=== PATIENT | male | born 1985 | race Caucasian/White ===

== ENCOUNTER 2019-11-16 00:51 | Emergency (ER) | payer OTHER, SELFPAY ==
--- NOTE | ~2019-11-16 | XR_ITS ---
EXAMINATION: XR chest 2V DATE: 11/16/2019 01:40 INDICATION: Right-sided chest pain TECHNIQUE: PA and lateral views of the chest were obtained. COMPARISON: Chest radiograph dated 11/13/2015 FINDINGS: The lungs remain clear with no focal airspace opacities, pulmonary edema, pleural effusion or pneumot horax. The cardiomediastinal silhouette is normal. Visualized bones and soft tissues are unremarkable . IMPRESSION: 1. Normal chest radiograph. Reviewed, dictated and finalized at location A. IMPRESSION: 1. Normal chest radiograph.
[2019-11-16 00:54] VITALS: BP 159/104; PULSE 101; RESP 18; TEMP 36.2; O2SAT 100
[2019-11-16] MEDS: KETOROLAC 30 MG/ML VIAL (*BKC) IV PUSH (01:52)
[2019-11-16 02:03] LABS: Basophils Absolute Auto 0.1 K/mm3 (0.0-0.1); Basophils Percent Auto 0.9 % (0.2-1.2); Eosinophils Absolute Auto 0.2 K/mm3 (0-0.3); Hematocrit 44.7 % (42.0-52.0); Hemoglobin 15.6 g/dL (14.0-18.0); Immature Granulocyte Absolute 0.01 K/mm3 (0.00-0.031); Immature Granulocyte Percent A 0.1 % (0-0.5); Lymphocytes Absolute Auto 2.88 K/mm3 (0.9-3.2); Lymphocytes Percent Auto 37.7 % (18.3-44.2); Mean Corpuscular HGB Conc 34.9 g/dl (32-36); Mean Corpuscular Hemoglobin 30.6 pg (26-34); Mean Corpuscular Volume 87.6 fl (80-100); Mean Platelet Volume 9.8 fl (7.4-10.4); Monocytes Absolute Auto 0.5 K/mm3 (0.1-0.6); Monocytes Percent Auto 6.8 % (2.6-8.5); Neutrophils Percent Auto 52.5 % (45.5-73.1); Platelet Count Result 207 k/mm3 (150-375); Red Cell Distribution Width 11.5 % (11.5-14.5); White Blood Count 7.6 K/mm3 (4.5-10.0)
[2019-11-16 02:15] LABS: Blood Urea Nitrogen 12 mg/dL (9-20); Calcium 9.4 mg/dL (8.4-10.2); Carbon Dioxide 22 mmol/L (22-30); Chloride 101 mmol/L (98-107); Estimated CRCL calculation 141 ml/min; Estimated Glomerular Filt Rate > 60; Glucose 125 mg/dL (75-110); Potassium 3.8 mmol/L (3.4-5.0); Sodium 136 mmol/L (137-145)
[2019-11-16 02:15] LABS: Prothrombin Time 12.4 Seconds (11.1-14.7)
[2019-11-16 02:16] LABS: Partial Thromboplastin Time 25.5 SECONDS (22.3-36.8)
[2019-11-16 02:22] LABS: D Dimer < 0.22 ug/mL (<0.48)
[2019-11-16 02:27] LABS: Troponin I < 0.012 ng/mL (0.000-0.034)
[2019-11-16 03:00] VITALS: BP 135/87; PULSE 95; O2SAT 97
--- NOTE | 2019-11-16 03:02 | PC.NURSE ---
Hand off report given to MIGUEL A Yeh.
--- NOTE | 2019-11-16 03:03 | PC.NURSE ---
Pt states his pain is now mostly on right side in his back, reports it as a stabbing pain. MD Lombardi made aware by this nurse.
--- NOTE | 2019-11-16 03:13 | ED.EXTPRO ---
HPI - Extremity Problem General Chief complaint: Extremity Problem,Nontraumatic Stated complaint: right arm/shoulder pain/chest pain Time Seen by Provider: 11/16/19 01:06 History of Present Illness HPI Narrative: Patient is a 33-year-old male who presents ER with right-sided chest and back pain. Reports pains worsening over the last week and he is not taking any pain medication for. Pain worsens with any type of movement of his arm. Occasional discomfort with deep breath. He thinks he might have a little bit of swelling his arm and has had intermittent tingling in his fingers. No known trauma. Related Data Home Medications Medication Instructions Recorded Confirmed [id number] K-lycop 1 tablet PO 11/16/19 [Men's Multivitamin] Allergies Allergy/AdvReac Type Severity Reaction Status Date / Time No Known Allergies Allergy Verified 11/16/19 01:00 Review of Systems Review of Systems: All systems reviewed & are unremarkable except as noted in HPI and below Constitutional: Constitutional: Denies chills, Denies fever(s) and Denies weakness ENT: Denies nasal congestion and Denies sore throat Cardiovascular: Cardiovascular: Reports chest pain, Denies rapid heart rate and Denies radiating jaw, neck or arm pain Respiratory: Respiratory: Denies cough and Reports dyspnea Gastrointestinal: Gastrointestinal: Denies abdominal pain, Denies nausea and Denies vomiting Musculoskeletal: Musculoskeletal: Reports back pain, Denies arthralgias, Denies joint swelling and Reports muscle cramps PMFSH Past Medical History Medical History (Updated 11/16/19 @ 03:21 by Nirav Lombardi MD) Cleft palate and cleft lip No pertinent past medical history Surgical History Surgical History (Updated 11/16/19 @ 03:19 by Nirav Lombardi MD) History of repair of congenital cleft palate Social History Social History (Updated 11/16/19 @ 03:19 by Nirav Lombardi MD) Smoking status: Never smoker Exam Narrative: Exam Narrative: GENERAL: Well-appearing, well-nourished, and in no acute distress. HEAD: Normocephalic, atraumatic. CHEST: Clear to auscultation. No respiratory distress. Tender palpation right anterior chest wall. HEART: Regular rate and rhythm. No murmur heard. Normal peripheral pulses. ABDOMEN: Soft, nontender, nondistended. Back: No midline tenderness of thoracic or lumbar spine. There is paraspinal musculature tenderness in the thoracic region on the right side that reproduces significant discomfort for the patient. EXTREMITIES: Normal range of motion. No edema. SKIN: Warm, dry, no rash. NEURO: Alert and oriented x3. Course Course Emergency Course: Unremarkable evaluation. Toradol given for pain. Patient is driving home so cannot receive anything additional for discomfort. We will give him a work note and prescribed anti-inflammatory medication and muscle relaxers for home. Vital Signs Vital signs: Vital Signs Temperature 97.1 F L 11/16/19 00:54 Pulse Rate 101 H 11/16/19 00:54 Respiratory Rate 18 11/16/19 00:54 Blood Pressure 159/104 H 11/16/19 00:54 Pulse Oximetry 100 11/16/19 00:54 Temperature 97.1 F L 11/16/19 00:54 Pulse Rate 95 11/16/19 03:00 Respiratory Rate 18 11/16/19 00:54 Blood Pressure 135/87 11/16/19 03:00 Pulse Oximetry 97 11/16/19 03:00 MDM - Extremity (Nontraumatic) Lab Data Result diagrams: 11/16/19 01:55 11/16/19 01:56 Labs: Lab Results 11/16/19 11/16/19 11/16/19 Range/Units 01:55 01:55 01:56 WBC 7.6 (4.5-10.0) K/mm3 RBC 5.10 (4.6-6.20) M/mm3 Hgb 15.6 (14.0-18.0) g/dL Hct 44.7 (42.0-52.0) % MCV 87.6 (80-100) fl MCH 30.6 (26-34) pg MCHC 34.9 (32-36) g/dl RDW 11.5 (11.5-14.5) % Plt Count 207 (150-375) k/mm3 MPV 9.8 (7.4-10.4) fl Immature Gran % (Auto) 0.1 (0-0.5) % Neut % (Auto) 52.5 (45.5-73.1) % Lymph % (Auto) 37.7 (18.3-44.2) %
[2019-11-16 03:40] VITALS: BP 143/83; PULSE 94; RESP 18; O2SAT 97
== END 2019-11-16 03:40 | disposition home or self-care (01) ==
PROVIDERS: Emergency Provider Emergency Medicine; PCP Family Medicine
DX: R07.89 Other chest pain (principal); M54.6 Pain in thoracic spine
CPT/HCPCS: 36415; 71046; 80048; 84484; 85025; 85380; 85610; 85730; 96374; 99284; J1885

== ENCOUNTER 2020-03-23 23:42 | Emergency (ER) | payer OTHER, SELFPAY ==
--- NOTE | ~2020-03-23 | XR_ITS ---
EXAMINATION: XR abdomen/kub 1V INDICATION: Lower abdominal pain TECHNIQUE: Supine views of the abdomen were obtained on 2 radiographs. COMPARISON: None FINDINGS: There are no dilated loops of bowel. An expected volume of colonic stool is present. Puncta te pelvic calcifications likely reflect phleboliths. A bone island is noted in left proximal femur. IMPRESSION: 1. No radiographic correlate for the patient's symptoms. Reviewed, dictated and finalized at location A.
[2020-03-23 23:48] VITALS: BP 167/96; PULSE 79; RESP 17; TEMP 35.7; O2SAT 100
[2020-03-24 00:14] LABS: Basophils Absolute Auto 0.1 K/mm3 (0.0-0.1); Basophils Percent Auto 0.8 % (0.2-1.2); Eosinophils Absolute Auto 0.2 K/mm3 (0-0.3); Eosinophils Percent Auto 2.5 % (0-4.4); Hemoglobin 15.4 g/dL (14.0-18.0); Immature Granulocyte Absolute 0.02 K/mm3 (0.00-0.031); Immature Granulocyte Percent A 0.2 % (0-0.5); Lymphocytes Absolute Auto 3.34 K/mm3 (0.9-3.2); Mean Corpuscular HGB Conc 34.2 g/dl (32-36); Mean Corpuscular Hemoglobin 30.7 pg (26-34); Mean Corpuscular Volume 89.8 fl (80-100); Mean Platelet Volume 9.7 fl (7.4-10.4); Monocytes Absolute Auto 0.7 K/mm3 (0.1-0.6); Monocytes Percent Auto 8.5 % (2.6-8.5); Platelet Count Result 203 k/mm3 (150-375); Red Blood Count 5.01 M/mm3 (4.6-6.20); Red Cell Distribution Width 11.9 % (11.5-14.5); White Blood Count 8.4 K/mm3 (4.5-10.0)
[2020-03-24 00:20] LABS: Alanine Aminotransferase 43 U/L (4-50); Albumin Level 4.7 g/dL (3.5-5.1); Alkaline Phosphatase 60 U/L (38-126); Anion Gap 12 mmol/L (8-16); Aspartate Amino Transferase 32 U/L (17-59); Bilirubin,Total 0.3 mg/dL (0.2-1.3); Blood Urea Nitrogen 10 mg/dL (9-20); Calcium 9.2 mg/dL (8.4-10.2); Carbon Dioxide 29 mmol/L (22-30); Chloride 101 mmol/L (98-107); Estimated CRCL calculation 111 ml/min; Estimated Glomerular Filt Rate > 60; Glucose 114 mg/dL (75-110); Lipase 95 U/L (23-300); Potassium 3.8 mmol/L (3.4-5.0); Sodium 142 mmol/L (137-145)
[2020-03-24 00:56] LABS: Add Urine Microscopic? NO; Appearance Urine Clear (Clear); Bilirubin Urine Negative (Negative); Blood Urine Negative (Negative); Color Urine Colorless (Yellow); Glucose Urine UA Negative (Negative); Ketones Urine Negative (Negative); Leukocyte Esterase Ur Negative LEU/UL (Negative); Nitrate Urine Negative (Negative); Protein Urine Negative (Negative); Urobilinogen Urine Negative mg/dL (<2.0)
[2020-03-24 01:02] LABS: Specific Grav Ur 1.003 (1.001-1.035)
--- NOTE | 2020-03-24 02:20 | ED.ABDPAIN ---
HPI - Abdominal Pain General Chief Complaint: Abdominal Pain Stated Complaint: abd pain Time Seen by Provider: 03/24/20 01:09 History of Present Illness HPI narrative: Patient is a 34-year-old male who presents ER with lower abdominal pain. Began earlier in the day. Cramping and midline of his lower abdomen. No radiation. No nausea/vomiting/diarrhea. Denies constipation. Thought at first it was gas but has not gone away. No urinary symptoms. Related Data Home Medications Medication Instructions Recorded Confirmed meloxicam submicronized 5 mg PO DAILY 03/23/20 Allergies Allergy/AdvReac Type Severity Reaction Status Date / Time No Known Allergies Allergy Verified 03/23/20 23:51 Review of Systems Review of Systems: All systems reviewed & are unremarkable except as noted in HPI and below Constitutional: Constitutional: Denies chills, Denies fever(s) and Denies weakness ENT: Denies nasal congestion and Denies sore throat Gastrointestinal: Gastrointestinal: Reports abdominal pain, Reports bloating, Denies constipation, Denies diarrhea, Denies nausea and Denies vomiting Genitourinary: Genitourinary: Denies hematuria, Denies dysuria and Denies urinary frequency [facility] Past Medical History Medical History (Updated 03/24/20 @ 02:25 by Nirav Lombardi MD) Cleft palate and cleft lip No pertinent past medical history Surgical History Surgical History (Updated 11/16/19 @ 03:19 by Nirav Lombardi MD) History of repair of congenital cleft palate Social History Social History (Updated 11/16/19 @ 03:19 by Nirav Lombardi MD) Smoking status: Never smoker Gender identity (if verbalized by the patient): Male Exam Narrative: Exam Narrative: GENERAL: Well-appearing, well-nourished, and in no acute distress. HEAD: Normocephalic, atraumatic. ENT: Mucous membranes moist. CHEST: Clear to auscultation. No respiratory distress. HEART: Regular rate and rhythm. Normal peripheral pulses. ABDOMEN: Soft, nontender, nondistended, normal active bowel sounds. EXTREMITIES: Normal range of motion. No edema. NEURO: Alert and oriented x3. PSYCH: Normal mood and affect. Course Course Emergency Course: Patient informed of results. Mild no gas on KUB. Recommend Gas-X and fiber. Discharge home. Vital Signs Vital signs: Vital Signs Temperature 96.2 F L 10/30/20 23:48 Pulse Rate 79 03/23/20 23:48 Respiratory Rate 17 03/23/20 23:48 Blood Pressure 167/96 H 03/23/20 23:48 Pulse Oximetry 100 03/23/20 23:48 Temperature 96.2 F L 03/23/20 23:48 Pulse Rate 79 03/23/20 23:48 Respiratory Rate 17 03/23/20 23:48 Blood Pressure 167/96 H 03/23/20 23:48 Pulse Oximetry 100 03/23/20 23:48 MDM - Abdominal Pain Lab Data Result diagrams: 03/23/20 23:55 03/23/20 23:55 Labs: Lab Results 03/23/20 03/23/20 03/24/20 Range/Units 23:55 23:55 00:03 WBC 8.4 (4.5-10.0) K/mm3 RBC 5.01 (4.6-6.20) M/mm3 Hgb 15.4 (14.0-18.0) g/dL Hct 45.0 (42.0-52.0) % MCV 89.8 (80-100) fl MCH 30.7 (26-34) pg MCHC 34.2 (32-36) g/dl RDW 11.9 (11.5-14.5) % Plt Count 203 (150-375) k/mm3 MPV 9.7 (7.4-10.4) fl Immature Gran % (Auto) 0.2 (0-0.5) % Neut % (Auto) 48.0 (45.5-73.1) % Lymph % (Auto) 40.0 (18.3-44.2) % [place] % (Auto) 8.5 (2.6-8.5) % Eos % (Auto) 2.5 (0-4.4) % Baso % (Auto) 0.8 (0.2-1.2) % Lymph # (Auto) 3.34 H (0.9-3.2) K/mm3 [place] # (Auto) 0.7 H (0.1-0.6) K/mm3 Eos # (Auto) 0.2 (0-0.3) K/mm3 Baso # (Auto) 0.1 (0.0-0.1) K/mm3 Abs Immat Gran (auto) 0.02 (0.00-0.031) K/mm3 Absolute Neuts (auto) 4.0 (1.3-6.7) K/mm3 Absolute Nucleated RBC 0.0 (0.0-0.012) K/mm3 Nucleated RBC % 0.0 (0.0-0.2) % Sodium 142 (137-145) mmol/L Potassium 3.8 (3.4-5.0) mmol/L Chloride 101 (98-107) mmol/L Carbon Dioxide 29 (22-30) mmol/L Anion Gap 12 (8-16) m
[2020-03-24 02:46] VITALS: BP 132/72; PULSE 82; RESP 18; O2SAT 99
== END 2020-03-24 02:48 | disposition home or self-care (01) ==
PROVIDERS: Emergency Provider Emergency Medicine; PCP Family Medicine
DX: R10.30 Lower abdominal pain, unspecified (principal)
CPT/HCPCS: 36415; 74018; 80053; 81003; 83690; 85025; 99283

== ENCOUNTER 2021-01-17 06:54 | Emergency (ER) | payer OTHER, SELFPAY ==
[2021-01-17 06:58] VITALS: BP 161/103; PULSE 110; RESP 20; TEMP 36.8; O2SAT 100
--- NOTE | 2021-01-17 08:27 | ED.BACK ---
HPI - Back Pain/Injury General Chief Complaint: Back Pain/Injury Stated Complaint: left sided back pain Time Seen by Provider: 01/17/21 07:33 Source: patient Mode of arrival: ambulatory Limitations: no limitations History of Present Illness HPI Narrative: Patient complaining of left lower back pain, woke up with it yesterday morning. 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 History of intermittent lower back pain. Patient denies radiation of pain or focal deficit patient denies patient denies bowel dysfunction, bladder dysfunction, altered sensation, focal weakness, or saddle numbness, Related Data Home Medications Medication Instructions Recorded Confirmed meloxicam submicronized 5 mg PO DAILY 03/23/20 Allergies Allergy/AdvReac Type Severity Reaction Status Date / Time No Known Allergies Allergy Verified 01/17/21 07:04 Review of Systems Review of Systems: CONSTITUTIONAL: Denies fever, chills, or sweats. EYES: Denies visual changes, redness, or discharge. ENT: Denies rhinorrhea, congestion, sore throat, or otalgia. CARDIOVASCULAR: Denies chest pain, palpitations, or edema. RESPIRATORY: Denies cough or dyspnea. GASTROINTESTINAL: Denies abdominal pain, nausea, vomiting, or diarrhea. GENITOURINARY: Denies dysuria or hematuria. SKIN: Denies rash or itching. MUSCULOSKELETAL: Denies back pain, joint pain, or myalgia. NEUROLOGIC: Denies headache, numbness, or weakness. PSYCHIATRIC: Denies anxiety or depression. PMFSH Past Medical History Medical History Cleft palate and cleft lip No pertinent past medical history Surgical History Surgical History History of repair of congenital cleft palate Social History Social History Smoking status: Never smoker Gender identity (if verbalized by the patient): Male Exam Narrative: General appearance: Well-developed, well-nourished Skin: Normal color Head: Normocephalic, nontraumatic Eyes: Clear conjunctiva ENT: Oropharynx normal, ears normal, nose normal Neck: Supple, nontender Chest and respiratory: Airway patent, no respiratory distress, no accessory muscle use Heart: Regular rate/rhythm Abdomen: Soft, nontender, no organomegaly, quiet bowel sounds Vascular: Normal peripheral pulses, normal capillary refill. Musculoskeletal: Mild to moderate tenderness left lower back, no bruises, no swelling, no deformity, no rash, limited range of motion at the lumbar area. Neurologic: Alert and oriented ?3, ZOO DIRECTOR is normal as tested, no gross motor deficit Course Course Emergency Course: Improving Vital Signs Vital signs: Vital Signs Temperature 36.8 C 01/17/21 06:58 Pulse Rate 110 H 01/17/21 06:58 Respiratory Rate 20 01/17/21 06:58 Blood Pressure 161/103 H 01/17/21 06:58 Pulse Oximetry 100 01/17/21 06:58 Temperature 36.8 C 01/17/21 06:58 Pulse Rate 110 H 01/17/21 06:58 Respiratory Rate 20 01/17/21 06:58 Blood Pressure 161/103 H 01/17/21 06:58 Pulse Oximetry 100 01/17/21 06:58 MDM - Back Pain/Injury MDM Narrative Medical decision making narrative: Lower back musculoskeletal strain/sprain is my concern Critical Care Time Critical Care Time Critical Care Time: No Discharge Plan Discharge Clinical Impression: Strain of lumbar region Qualifiers: Encounter type: initial encounter Qualified Code(s): S39.012A - Strain of muscle, fascia and tendon of lower back, initial encounter Patient Disposition: Home, Self-Care Condition: Improved Instructions: Musculoskeletal Pain (ED) Additional Instructions: Ret
[2021-01-17] MEDS: HYDROmorphone HCL INJ (*CRX) 1 MG/ML SYR 0.5 MG IV PUSH (08:35)
[2021-01-17] MEDS: diazePAM INJ (*CRX) 10 MG/2 ML SYRINGE 5 MG IV PUSH (08:37)
[2021-01-17] MEDS: ONDANSETRON INJ 4 MG/2 ML VIAL IV PUSH (08:38)
== END 2021-01-17 09:34 | disposition home or self-care (01) ==
PROVIDERS: Emergency Provider Emergency Medicine; PCP Family Medicine
DX: S39.012A Strain of muscle, fascia and tendon of lower back, initial encounter (principal); X58.XXXA Exposure to other specified factors, initial encounter
CPT/HCPCS: 96374; 96375; 99284; J1170; J2405; J3360

== ENCOUNTER 2022-05-23 11:13 | Emergency (ER) | payer OTHER, SELFPAY ==
--- NOTE | ~2022-05-23 | XR_ITS ---
EXAMINATION: XR shoulder LT min 2V DATE: 05/23/2022 13:59 INDICATION: Left shoulder pain. TECHNIQUE: 4 views of left shoulder were obtained. COMPARISON: Left shoulder radiographs 03/23/2012 FINDINGS: Bone alignment is normal. No fracture. Glenohumeral joint is normal. There is mild acromioc lavicular joint osteoarthritis. IMPRESSION: 1. Mild acromioclavicular joint osteoarthritis. Reviewed, dictated and finalized at location A. [employer]OR OF BUSINESS SERVICES
--- NOTE | ~2022-05-23 | XR_ITS ---
EXAMINATION: XR chest 2V DATE: 05/23/2022 11:52 INDICATION: Left arm pain, numbness and tingling TECHNIQUE: PA and lateral views of the chest were obtained. COMPARISON: Chest radiograph dated 11/16/2019 FINDINGS: The lungs remain clear with no focal airspace opacities, pulmonary edema, pleural effusion or pneumot horax. The cardiomediastinal silhouette is normal. Visualized bones and soft tissues are unremarkable . IMPRESSION: 1. Normal chest radiograph. Reviewed, dictated and finalized at location A. GY CONSERVATION ENGINEER IMPRESSION: 1. Normal chest radiograph.
[2022-05-23 11:17] VITALS: BP 156/99; PULSE 115; RESP 20; TEMP 36.6; O2SAT 99
--- NOTE | 2022-05-23 11:20 | ECG_ITS ---
Measurements Intervals [place] Rate: 104 P: 46 HI: 116 QRS: 31 QRSD: 90 T: 28 QT: 347 QTc: 457 Interpretive Statements SINUS TACHYCARDIA WITH SHORT HI INTERVAL OTHERWISE NORMAL ECG NO PREVIOUS ECG AVAILABLE FOR COMPARISON Electronically Signed On 05-23-2022 14:59:33 PULPING MACHINE OPERATOR by Javed Stephenson M.D.
[2022-05-23 11:37] LABS: Basophils Absolute Auto 0.1 K/mm3 (0.0-0.1); Basophils Percent Auto 0.8 % (0.2-1.2); Eosinophils Absolute Auto 0.1 K/mm3 (0-0.3); Eosinophils Percent Auto 1.3 % (0-4.4); Hemoglobin 15.7 g/dL (14.0-18.0); Immature Granulocyte Absolute 0.02 K/mm3 (0.00-0.031); Immature Granulocyte Percent A 0.3 % (0-0.5); Lymphocytes Absolute Auto 2.15 K/mm3 (0.9-3.2); Lymphocytes Percent Auto 28.8 % (18.3-44.2); Mean Corpuscular HGB Conc 34.1 g/dl (32-36); Mean Corpuscular Hemoglobin 30.3 pg (26-34); Mean Corpuscular Volume 88.6 fl (80-100); Mean Platelet Volume 9.8 fl (7.4-10.4); Monocytes Absolute Auto 0.5 K/mm3 (0.1-0.6); Monocytes Percent Auto 6.6 % (2.6-8.5); Neutrophils Absolute Auto 4.7 K/mm3 (1.3-6.7); Neutrophils Percent Auto 62.2 % (45.5-73.1); Platelet Count Result 238 k/mm3 (150-375); Red Blood Count 5.19 M/mm3 (4.6-6.20); Red Cell Distribution Width 12.1 % (11.5-14.5); White Blood Count 7.5 K/mm3 (4.5-10.0)
[2022-05-23 11:48] LABS: Alanine Aminotransferase 60 U/L (6-50); Alkaline Phosphatase 67 U/L (38-126); Anion Gap 10 mmol/L (8-16); Aspartate Amino Transferase 36 U/L (17-59); Bilirubin,Total 0.5 mg/dL (0.2-1.3); Blood Urea Nitrogen 11 mg/dL (9-20); Calcium 9.2 mg/dL (8.4-10.2); Carbon Dioxide 26 mmol/L (22-30); Chloride 103 mmol/L (98-107); Estimated CRCL calculation 124 ml/min; Estimated Glomerular Filt Rate > 60; Glucose 104 mg/dL (65-110); Potassium 4.1 mmol/L (3.4-5.0); Sodium 139 mmol/L (137-145)
[2022-05-23 11:52] LABS: Prothrombin Time 12.3 Seconds (11.1-14.7)
[2022-05-23 11:53] LABS: Partial Thromboplastin Time 25.1 SECONDS (22.3-36.8)
[2022-05-23 11:59] LABS: Troponin I < 0.012 ng/mL (0.000-0.034)
--- NOTE | 2022-05-23 13:40 | ED.GENADULT ---
HPI - General Adult General Chief complaint: Extremity Injury, Upper <Hellen Seals PA-C - Last Filed: 05/23/22 13:40> Stated complaint: left arm numbness/tingling and pain in shoulder <Hellen Seals PA-C - Last Filed: 05/23/22 13:40> Time Seen by Provider: 05/23/22 13:36 <Hellen Seals PA-C - Last Filed: 05/23/22 13:40> History of Present Illness HPI narrative: Patient is a 36-year-old male who presents ER with left shoulder pain and tingling down his left arm. 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 He was moving a tire when symptoms began. No chest pain or difficulty breathing. No lightheadedness. Reports tingling is been persistent since moving tire. No sudden onset pain in his shoulder but does have worsening of his symptoms when he performs certain motions. No history of previous injury to the rotator cuff or shoulder. No exertional chest discomfort or arm pain <Nirav Lombardi MD - Last Filed: 05/23/22 15:13> Related Data Home medications: Home Medications Medication Instructions Recorded Confirmed meloxicam submicronized 5 mg 5 mg PO DAILY 03/23/20 capsule <Hellen Seals PA-C - Last Filed: 05/23/22 13:40> Allergies/adverse reactions: Allergies Allergy/AdvReac Type Severity Reaction Status Date / Time No Known Allergies Allergy Verified 01/17/21 07:04 <Hellen Seals PA-C - Last Filed: 05/23/22 13:40> Review of Systems Review of Systems: All systems reviewed & are unremarkable except as noted in HPI and below <Nirav Lombardi MD - Last Filed: 05/23/22 15:13> Constitutional: Constitutional: Denies chills, Denies fatigue and Denies fever(s) <Nirav Lombardi MD - Last Filed: 05/23/22 15:13> Cardiovascular: Cardiovascular: Denies chest pain, Denies rapid heart rate and Denies radiating jaw, neck or arm pain <Nirav Lombardi MD - Last Filed: 05/23/22 15:13> Respiratory: Respiratory: Denies cough and Denies dyspnea <Nirav Lombardi MD - Last Filed: 05/23/22 15:13> Gastrointestinal: Gastrointestinal: Denies abdominal pain, Denies nausea and Denies vomiting <Nirav Lombardi MD - Last Filed: 05/23/22 15:13> Musculoskeletal: Musculoskeletal: Denies myalgias, Reports arthralgias and Denies joint swelling <Nirav Lombardi MD - Last Filed: 05/23/22 15:13> Neurologic: Denies syncope and Denies focal weakness <Nirav Lombardi MD - Last Filed: 05/23/22 15:13> Comments: Paresthesias <Nirav Lombardi MD - Last Filed: 05/23/22 15:13> PMFSH Past Medical History Medical History: Medical History Cleft palate and cleft lip No pertinent past medical history <Hellen Seals PA-C - Last Filed: 05/23/22 13:40> Surgical History Surgical History: Surgical History History of repair of congenital cleft palate <Hellen Seals PA-C - Last Filed: 05/23/22 13:40> Social History Social History: Social History Smoking status: Never smoker Gender identity (if verbalized by the patient): Male <Hellen Seals PA-C - Last Filed: 05/23/22 13:40> Exam Narrative: GENERAL: Well-appearing, well-nourished, and in no acute distress. HEAD: Normocephalic, atraumatic. NECK: Supple. No midline or paraspinal muscular tenderness of the C-spine. CHEST: Clear to auscultation. No respiratory distress. HEART: Regular rate and rhythm. Normal peripheral pulses. ABDOMEN: Soft, nontender, nondistended. EXTREMITIES: Left upper extremity was limited internal rotation at the shoulder due to pain. This increases patient's numbness that goes down his arm. Otherwise unremarkable exam of the left upper extremity. SKIN: Warm, dry, no rash. NEURO: Alert and oriented x3. Gross sensation intact in the left hand despite feeling tingl
[2022-05-23] MEDS: KETOROLAC (*BKC) 60 MG/2 ML VIAL IM (13:51)
[2022-05-23 15:21] VITALS: BP 142/84; PULSE 90; RESP 16; O2SAT 99
== END 2022-05-23 15:22 | disposition home or self-care (01) ==
PROVIDERS: Family Medicine; Emergency Provider Emergency Medicine; PCP Family Medicine
DX: M19.012 Primary osteoarthritis, left shoulder (principal); M54.10 Radiculopathy, site unspecified; R00.0 Tachycardia, unspecified
CPT/HCPCS: 36415; 71046; 73030; 80053; 84484; 85025; 85610; 85730; 93005; 96372; 99284; J1885

== ENCOUNTER 2022-07-15 10:30 | Outpatient (RCR) | payer OTHER, MEDICAID, SELFPAY ==
--- NOTE | 2022-06-16 15:00 | PTOPEVAL1 ---
Assessment and note entered by Tanisha Cummins DPT Evaluation Information Assessment Status Evaluation Subjective Information Pt reports pain in his L shoulder. Pt reports in April he felt a sharp pain down to his hand and some numbness in his hand. Went to ER, was diagnosed with pinched nerve and told something about arthritis. Highest pain 7/10 and lowest 4/10 . Pain is generally anterior L shoulder, some tingling in all fingers and more on his palm. Denies neck pain. Pain increases with heavy lifting (is on light duty at work), moving his shoulder. States he likely would have pain with yardwork or heavier activities at home. Rest relieves pain. Pt is R handed. Saw MD 2 weeks ago and goes back 06/30/22. 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 Reported Pain Level Pain Score 6: Self Report Assessment PT Clinical Summary The patient is presenting to skilled therapy with left shoulder pain and radiating symptoms since April. He presents with decreased shoulder range of motion, likely strength impairments and signs of neural tension which are contributing to his pain and difficulty performing all activities like at work. He will benefit from therapy to address these impairments and reduce pain to return to prior level of function. Plan of Care Interventions Electrical Stimulation,Hot Pack/Cold Pack,Manual Therapy,Mechanical Traction,Neuro Re-education, Patient/Caregiver Education,Therapeutic Activities, Therapeutic Exercise,Self-Care/Home Management PT Services Indicated Yes Treatment Frequency and 2 times a week for 4 weeks Duration These treatments will address the objective and functional deficits as defined above. The patient will be advanced safely and appropriately in order for the patient to progress towards his/her prior level of function. Additional exercises will be introduced and as well as a comprehensive home exercise program upon discharge, if needed, ?to ensure carryover of functional gains achieved in the clinic. This treatment plan has been reviewed and agreement upon by the patient.
--- NOTE | 2022-07-11 15:52 | PCPTNOTE ---
No show and no call. Called and spoke with patient who states he forgot his appointment today. Confirmed his upcoming appointment.
--- NOTE | 2022-07-15 10:52 | PTOPDC ---
Assessment and note entered by Tanisha Cummins DPT Evaluation Information Assessment Status Evaluation Subjective Information Highest pain in last week 1/10. Worst upon waking in the morning. Overall feels that therapy has gone great , is able to do all ADL's and reports no trouble at work. Feels confident making this his last visit. Reported Pain Level Pain Score 0: Self Report Assessment PT Clinical Summary The patient has made excellent progress in therapy . He reports pain at 1/10 highest and no limitations with ADL's or work activities. He demonstrates full shoulder range of motion and strength as well as improved cervical flexibility and no signs of neural tension. He has been educated to continue HEP and follow up with MD and /or PT as needed. Plan of Care PT Services Indicated No
== END 2022-07-15 13:43 | disposition home or self-care (01) ==
LOC: ANHGOSHPT 10:30
PROVIDERS: PCP Family Medicine; Visit Provider Physician Assistant
DX: M25.512 Pain in left shoulder (principal)
CPT/HCPCS: 97012; 97110; 97112; 97140; 97161; 99199

== ENCOUNTER 2022-10-02 08:36 | Emergency (ER) | payer OTHER, MEDICAID, SELFPAY ==
[2022-10-02] VITALS (17 sets, daily range): BP systolic 110–139; BP diastolic 68–89; PULSE 77–97; RESP 11–20; TEMP 36.6–36.8; O2SAT 95–100
--- NOTE | ~2022-10-02 | CT_ITS ---
Clinical Indication: Shortness of breath, chest pain CT Scan of the Chest with Contrast: Technique: Contiguous sections were acquired throughout the chest after intravenous administration of 200 cc of Omnipaque 350. Dose reduction technique was used on this scan by utilizing automated expos ure control and iterative reconstruction technique. The dose-length product (DLP) was 1202.03 mGy-cm. Findings: There is no evidence of any significant mediastinal, hilar or axillary lymphadenopathy. There is no f illing defect in the pulmonary arterial tree to suggest pulmonary embolus. There is no evidence of ao rtic dissection or aneurysm. There is no evidence of pleural or pericardial effusion. Focal tree-in-bud opacities noted in the superior segment right lower lobe. Images through the upper abdomen reveal no abnormalities. Impression: No evidence of pulmonary embolus, aortic dissection, or aortic aneurysm. Focal tree-in-bud opacities in superior segment right lower lobe, suspicious for focal small airways infectious process. Reviewed, dictated and finalized at location . Impression: No evidence of pulmonary embolus, aortic dissection, or aortic aneurysm. Focal tree-in-bud opacities in superior segment right lower lobe, suspicious fo r focal small airways infectious process.
--- NOTE | ~2022-10-02 | XR_ITS ---
EXAMINATION: XR chest 2V 10/02/2022 09:30 INDICATION: Left-sided mid chest pain PROCEDURE: 2 view chest COMPARISON: 05/23/2022 FINDINGS: The lungs are clear. The cardiomediastinal silhouette is within normal limits. There are no pleural effusions. There is no pneumothorax suspected. IMPRESSION: 1: NO ACUTE CARDIOPULMONARY DISEASE. Reviewed, dictated and finalized at location L.
--- NOTE | 2022-10-02 08:49 | ECG_ITS ---
Measurements Intervals [place] Rate: 88 P: -1 NV: 104 QRS: 6 QRSD: 89 T: 30 QT: 361 QTc: 439 Interpretive Statements SINUS RHYTHM WITH SHORT NV INTERVAL BORDERLINE ECG COMPARED TO ECG 05/23/2022 11:25:29 SINUS RHYTHM NOW PRESENT Electronically Signed On 10-02-2022 11:18:34 CDT by Raul Corley D.O.
--- NOTE | 2022-10-02 08:55 | ED.CHESTPAIN ---
HPI - Chest Pain General Chief Complaint: Chest Pain Stated Complaint: chest pain x 2 days Time Seen by Provider: 10/02/22 08:54 Source: patient Mode of arrival: ambulatory Limitations: no limitations History of Present Illness HPI narrative: Patient is a 36 y/o male, with PMH of HTN/HLD, who presents to the ED with c/o chest pain. Patient reports having constant chest pain since Thursday morning in his left lower chest. He states he saw his primary care doctor on Thursday for a headache and was noted to be hypertensive at that time. Patient does have history of hypertension is supposed to be taking lisinopril 40 mg daily. He had not been taking this as directed. He was also started on amlodipine for additional antihypertensive effect. He began taking the amlodipine with his lisinopril on Thursday at which time he noticed the chest pain. Denies any aggravating or alleviating factors to the chest pain. Denies worsening with exertion. He has had intermittent mild breathlessness since yesterday, worse with exertion, but denies difficulty breathing. Denies any recent fevers, cough, cold symptoms, lower extremity pain or swelling, abdominal pain, nausea, vomiting. Patient denies history of diabetes or family history of heart disease. He is a smoker. Related Data Home Medications Medication Instructions Recorded Confirmed meloxicam submicronized 5 mg 5 mg PO DAILY 03/23/20 capsule Allergies Allergy/AdvReac Type Severity Reaction Status Date / Time No Known Allergies Allergy Verified 01/17/21 07:04 Review of Systems Review of Systems: CONSTITUTIONAL: Denies fever, chills, or sweats. ENT: Denies rhinorrhea, congestion, sore throat. CARDIOVASCULAR: See HPI. RESPIRATORY: See HPI. GASTROINTESTINAL: Denies abdominal pain, nausea, vomiting. GENITOURINARY: Denies dysuria or hematuria. SKIN: Denies rash or itching. MUSCULOSKELETAL: Denies back pain, joint pain, or myalgia. NEUROLOGIC: See HPI. All systems reviewed & are unremarkable except as noted in HPI and below PMFSH Past Medical History Medical History Cleft palate and cleft lip No pertinent past medical history Surgical History Surgical History History of repair of congenital cleft palate Social History Social History Smoking status: Never smoker Gender identity (if verbalized by the patient): Male Exam Narrative: GENERAL: Well appearing, obese with BMI of 31.4, non-toxic, in no acute distress. HEAD: Normocephalic, atraumatic. ENT: Poor dentition. NECK: Supple. No adenopathy, no masses. RESPIRATORY: Airway patent, respirations nonlabored. Clear to auscultation bilaterally, no rales, rhonchi, wheezing. No focal lung sounds. CARDIOVASCULAR: Regular rate and rhythm without murmurs, rubs, or gallops. Radial pulses 2+ and equal bilaterally. ABDOMINAL: Soft, nontender, nondistended, no hepatosplenomegaly. Normoactive BS. MUSCULOSKELETAL: Moves all extremities. Strength/ROM intact without gross deformities. Very mild chest wall tenderness to palpation in left lower anterior chest. No edema. No calf tenderness. SKIN: Warm, dry, normal color. No rashes. NEURO: A&O X3. Speech clear. Cranial nerves II-XII grossly intact. Steady gait. No ataxic movements. PSYCHIATRIC: Appropriate mood and affect. Normal interaction. Course Vital Signs Vital signs: Vital Signs Temperature 98.3 F 10/02/22 08:53 Pulse Rate 96 10/02/22 08:53 Respiratory Rate 16 10/02/22 08:53 Blood Pressure 130/89 10/02/22 08:53 Pulse Oximetry 98 10/02/22 08:53 Oxygen Delivery Room Air 10/02/22 08:53 Temperature 97.8 F 10/02/22 12:41 Pulse Rate 84 10/02/22 12:41 Respiratory Rate 14 10/02/22 12:41 Blood Pressure 110/74 10/02/22 12:41 Pulse Oximetry 98 10/02/22 12:4
[2022-10-02 09:36] LABS: Basophils Absolute Auto 0.1 K/mm3 (0.0-0.1); Basophils Percent Auto 0.8 % (0.2-1.2); Eosinophils Absolute Auto 0.2 K/mm3 (0-0.3); Eosinophils Percent Auto 2.9 % (0-4.4); Hematocrit 46.7 % (42.0-52.0); Hemoglobin 15.7 g/dL (14.0-18.0); Immature Granulocyte Absolute 0.02 K/mm3 (0.00-0.031); Immature Granulocyte Percent A 0.3 % (0-0.5); Lymphocytes Absolute Auto 2.08 K/mm3 (0.9-3.2); Lymphocytes Percent Auto 28.8 % (18.3-44.2); Mean Corpuscular HGB Conc 33.6 g/dl (32-36); Mean Corpuscular Hemoglobin 30.8 pg (26-34); Mean Corpuscular Volume 91.7 fl (80-100); Mean Platelet Volume 9.9 fl (7.4-10.4); Monocytes Absolute Auto 0.7 K/mm3 (0.1-0.6); Monocytes Percent Auto 9.1 % (2.6-8.5); Neutrophils Absolute Auto 4.2 K/mm3 (1.3-6.7); Neutrophils Percent Auto 58.1 % (45.5-73.1); Platelet Count Result 202 k/mm3 (150-375); Red Blood Count 5.09 M/mm3 (4.6-6.20); Red Cell Distribution Width 12.4 % (11.5-14.5); White Blood Count 7.2 K/mm3 (4.5-10.0)
[2022-10-02 09:39] LABS: Alanine Aminotransferase 106 U/L (6-50); Albumin Level 5.1 g/dL (3.5-5.1); Alkaline Phosphatase 57 U/L (38-126); Anion Gap 12 mmol/L (8-16); Aspartate Amino Transferase 60 U/L (17-59); Bilirubin,Total 0.7 mg/dL (0.2-1.3); Blood Urea Nitrogen 20 mg/dL (9-20); Calcium 9.5 mg/dL (8.4-10.2); Carbon Dioxide 25 mmol/L (22-30); Chloride 102 mmol/L (98-107); Estimated CRCL calculation 141 ml/min; Estimated Glomerular Filt Rate > 60; Glucose 103 mg/dL (65-110); Lipase 121 U/L (23-300); Potassium 4.6 mmol/L (3.4-5.0); Sodium 139 mmol/L (137-145)
[2022-10-02 09:46] LABS: INR 0.9; Prothrombin Time 12.3 Seconds (11.1-14.7)
[2022-10-02 09:47] LABS: Partial Thromboplastin Time 25.2 SECONDS (22.3-36.8)
[2022-10-02 09:49] LABS: Troponin I < 0.012 ng/mL (0.000-0.034)
[2022-10-02 09:54] LABS: NT Pro B Type Natriuretic Pept < 20 pg/mL (19.9-100)
[2022-10-02 09:58] LABS: D Dimer 1.04 ug/mL (<0.48)
[2022-10-02 12:29] LABS: Troponin I < 0.012 ng/mL (0.000-0.034)
== END 2022-10-02 12:52 | disposition home or self-care (01) ==
PROVIDERS: Emergency Provider Physician Assistant; PCP Physician Assistant
DX: R07.89 Other chest pain (principal); J18.9 Pneumonia, unspecified organism; R06.02 Shortness of breath; E78.5 Hyperlipidemia, unspecified; I10 Essential (primary) hypertension
CPT/HCPCS: 36415; 71046; 71275; 80053; 83690; 83880; 84484; 85025; 85380; 85610; 85730; 93005; 99284; Q9967

== ENCOUNTER 2023-08-12 09:01 | Outpatient (CLI) | payer OTHER, SELFPAY ==
--- NOTE | ~2023-08-12 | US_ITS ---
Ultrasound of the left neck CLINICAL HISTORY: Chronic palpable mass TECHNIQUE: Sonographic imaging of the left neck was performed at the area of palpable concern. FINDINGS: At the area of concern, there is a 1.9 x 1.0 x 2.3 cm circumscribed ovoid mass. This is pro bably solid, with probable small internal cystic areas. It is relatively superficially located, super ficial to underlying musculature. No definite internal vascular flow seen on color imaging. IMPRESSION: 1.9 x 1.0 x 2.3 cm circumscribed, mixed solid and cystic appearing mass at the left neck at the area of concern. Precise etiology and localization is unclear based on this exam. This is presumably benig n given patient report that this mass is long-standing, however pre and postcontrast MR should be con sidered to further characterize and localize the lesion. Reviewed, dictated and finalized at [facility]. IMPRESSION: 1.9 x 1.0 x 2.3 cm circumscribed, mixed solid and cystic appearing mass at the left neck at the area of concern. Precise etiology and localization is unclear based on this exam. This is presumably benign given patient report that this ma ss is long-standing, however pre and postcontrast MR should be considered to fu rther characterize and localize the lesion.
== END 2023-08-12 09:02 | disposition home or self-care (01) ==
LOC: ANHIMG 09:04
PROVIDERS: PCP Physician Assistant; Visit Provider Physician Assistant
DX: R22.1 Localized swelling, mass and lump, neck (principal)
CPT/HCPCS: 76536

== ENCOUNTER 2023-08-13 14:19 | Emergency (ER) | payer OTHER, SELFPAY ==
--- NOTE | ~2023-08-13 | CT_ITS ---
EXAMINATION: CT abdomen pelvis wo con DATE: 08/13/2023 14:37 INDICATION: Left lower and abdominal pain radiating to the scrotum. TECHNIQUE: Computed tomography (CT) of the abdomen and pelvis was performed without intravenous contr ast. Automated exposure control and iterative reconstruction technique were employed. The dose-length product was 1588.17 mGy-cm. COMPARISON: None FINDINGS: Lung bases are clear. Heart size is normal. No pericardial or pleural effusion. Mild diffuse hepatic steatosis. Gallbladder, spleen, pancreas and bilateral adrenal glands are normal. Kidneys and ureters are normal with no urolithiasis, hydroureteronephrosis or perinephric/ureteral stranding. Bladder is normal. Bowels including the appendix are normal. Small bilateral fat-containing inguinal hernias. N o free intraperitoneal gas or fluid. No pathologically enlarged abdominal or pelvic lymphadenopathy. Mild thoracic and lumbar spondylosis. IMPRESSION: 1. No urolithiasis or acute intra-abdominal/pelvic process. Reviewed, dictated and finalized at location A.
--- NOTE | ~2023-08-13 | US_ITS ---
US scrotum doppler DATE: 08/13/2023 15:36 INDICATION: Left scrotal pain TECHNIQUE: Real-time and color flow imaging and Doppler analysis of the scrotal contents COMPARISON: None FINDINGS: The right testicle measures 3.4 x 2.3 x 3.3 cm. The left testicle measures 4.3 x 2.3 x 2.8 cm. There is homogeneous symmetric echotexture of the testicles and normal bilateral color flow signa l at the testicles. Normal arterial Doppler tracings of the testicles. No testicular mass lesion or t orsion is detected. The epididymis appears unremarkable bilaterally. Small bilateral hydroceles. No varicocele is evident. IMPRESSION: No significant abnormality Reviewed, dictated and finalized at Location [facility]. Reviewed, dictated and finalized at location L. IMPRESSION: No significant abnormality
[2023-08-13 14:23] VITALS: BP 143/100; PULSE 100; RESP 16; TEMP 36.7; O2SAT 98
--- NOTE | 2023-08-13 14:24 | ED.ABDPAIN ---
HPI - Abdominal Pain General Chief Complaint: Abdominal Pain <FRANCOIS Kemp Last Filed: 08/13/23 14:30> Stated Complaint: L SIDED ABD PAIN, RADIATING TO SCROTUM <Shanice aBldwin PA-C - Last Filed: 08/13/23 14:30> Time Seen by Provider: 08/13/23 14:24 <FRANCOIS Kemp Last Filed: 08/13/23 14:30> Focused HPI: Patient is a 37-year-old male who presents the ED with report of left lower abdominal pain. Patient reports pain 1st began on Thursday night. He woke up yesterday morning without pain, but pain began again around 5-6 p.m. last night. Pain radiates into his left-sided testicle. Denies testicular swelling. Denies right testicular pain. Denies dysuria, hematuria, nausea, vomiting, diarrhea, constipation. Denies history of kidney stones or diverticulitis. Has not taken anything for pain. GENERAL: Mildly uncomfortable-appearing, obese with BMI of 34.1, and in no acute distress. HEAD: Normocephalic, atraumatic. CHEST: Clear to auscultation. ?No respiratory distress. HEART: Regular rate and rhythm.? ABD: Tenderness in LLQ, no rebound. No cva tenderness to percussion. NEURO: ?Alert and oriented x3. Patient screened in triage and initial orders placed.? ?Additional care and disposition to be based upon?diagnostic testing and treatment. <FRACNOIS Kemp Last Filed: 08/13/23 14:30> Source: patient <FRANCOIS Kemp Last Filed: 08/13/23 14:30> Mode of arrival: ambulatory <FRANCOIS Kemp Last Filed: 08/13/23 14:30> Limitations: no limitations <FRANCOIS Kemp Last Filed: 08/13/23 14:30> History of Present Illness HPI narrative: 37-year-old male presents to the emergency department for left scrotal pain and left lower abdominal pain intermittently x2 days. Patient states 2 days ago he began developing pain in his left testicle that radiated into his left abdomen. States it went away and began developing pain again yesterday. Patient denies fever, nausea vomiting, diarrhea, hematuria or dysuria, penile discharge, scrotal swelling. States the pain In his testicle is better when he is sitting and worse when he is standing. <Deyanira Srivastava PA-C - Last Filed: 08/13/23 17:55> Related Data Home Medications: Home Medications Medication Instructions Recorded Confirmed meloxicam submicronized 5 mg 5 mg PO DAILY 03/23/20 capsule <Shanice Baldwin PA-C - Last Filed: 08/13/23 14:30> Allergies/Adverse Reactions: Allergies Allergy/AdvReac Type Severity Reaction Status Date / Time No Known Allergies Allergy Verified 01/17/21 07:04 <Shanice Baldwin PA-C - Last Filed: 08/13/23 14:30> Review of Systems Review of Systems: CONSTITUTIONAL: Denies fever, chills, or sweats. EYES: Denies visual changes, redness, or discharge. ENT: Denies rhinorrhea, congestion, sore throat, or otalgia. CARDIOVASCULAR: Denies chest pain, palpitations, or edema. RESPIRATORY: Denies cough or dyspnea. GASTROINTESTINAL: see HPI GENITOURINARY: see HPI SKIN: Denies rash or itching. MUSCULOSKELETAL: Denies back pain, joint pain, or myalgia. NEUROLOGIC: Denies headache, numbness, or weakness. PSYCHIATRIC: Denies anxiety or depression. <Deyanira Srivastava PA-C - Last Filed: 08/13/23 17:55> [facility] Past Medical History Medical History: Medical History Cleft palate and cleft lip No pertinent past medical history <Shanice Baldwin PA-C - Last Filed: 08/13/23 14:30> Surgical History Surgical History: Surgical History History of repair of congenital cleft palate <Shanice Baldwin PA-C - Last Filed: 08/13/23 14:30> Social History Social History: Social History Smoking status: Never smoker Gender
[2023-08-13] MEDS: ACETAMINOPHEN 500 MG TABLET 1000 MG PO (14:52)
[2023-08-13 15:00] LABS: Basophils Absolute Auto 0.1 K/mm3 (0.0-0.1); Basophils Percent Auto 0.8 % (0.2-1.2); Eosinophils Absolute Auto 0.2 K/mm3 (0-0.3); Eosinophils Percent Auto 1.9 % (0-4.4); Hematocrit 43.2 % (42.0-52.0); Hemoglobin 14.3 g/dL (14.0-18.0); Immature Granulocyte Absolute 0.04 K/mm3 (0.00-0.031); Immature Granulocyte Percent A 0.4 % (0-0.5); Lymphocytes Absolute Auto 2.54 K/mm3 (0.9-3.2); Lymphocytes Percent Auto 24.5 % (18.3-44.2); Mean Corpuscular HGB Conc 33.1 g/dl (32-36); Mean Corpuscular Hemoglobin 30.4 pg (26-34); Mean Corpuscular Volume 91.9 fl (80-100); Mean Platelet Volume 9.8 fl (7.4-10.4); Monocytes Absolute Auto 0.7 K/mm3 (0.1-0.6); Neutrophils Absolute Auto 6.8 K/mm3 (1.3-6.7); Neutrophils Percent Auto 65.4 % (45.5-73.1); Platelet Count Result 229 k/mm3 (150-375); Red Cell Distribution Width 12.1 % (11.5-14.5); White Blood Count 10.4 K/mm3 (4.5-10.0)
[2023-08-13 15:01] LABS: Appearance Urine Clear (Clear); Bilirubin Urine Negative (Negative); Blood Urine Negative (Negative); Color Urine Yellow (Yellow); Glucose Urine UA Negative (Negative); Ketones Urine Negative (Negative); Leukocyte Esterase Ur Negative LEU/UL (Negative); Nitrate Urine Negative (Negative); Protein Urine Negative (Negative); Specific Grav Ur 1.006 (1.001-1.035); Urobilinogen Urine 0.2 mg/dL (<2.0)
[2023-08-13 15:12] LABS: Alanine Aminotransferase 40 U/L (6-50); Albumin Level 5.1 g/dL (3.5-5.1); Alkaline Phosphatase 68 U/L (38-126); Anion Gap 7 mmol/L (8-16); Aspartate Amino Transferase 30 U/L (17-59); Bilirubin,Total 0.7 mg/dL (0.2-1.3); Blood Urea Nitrogen 13 mg/dL (9-20); Calcium 10.3 mg/dL (8.4-10.2); Carbon Dioxide 28 mmol/L (22-30); Chloride 102 mmol/L (98-107); Estimated CRCL calculation 126 ml/min; Estimated Glomerular Filt Rate > 60; Glucose 94 mg/dL (65-110); Potassium 4.5 mmol/L (3.4-5.0); Sodium 137 mmol/L (137-145)
[2023-08-13 15:25] LABS: Add Urine Microscopic? NO
== END 2023-08-13 17:45 | disposition home or self-care (01) ==
PROVIDERS: Physician Assistant; Emergency Provider Physician Assistant; PCP Physician Assistant
DX: N45.1 Epididymitis (principal); R10.32 Left lower quadrant pain; Z87.730 Personal history of (corrected) cleft lip and palate
CPT/HCPCS: 36415; 74176; 76870; 80053; 85025; 93976; 99284; A9270

== ENCOUNTER 2023-10-25 11:50 | Day surgery (SDC) | payer OTHER, SELFPAY ==
[2023-10-25] VITALS (25 sets, daily range): BP systolic 122–149; BP diastolic 67–106; PULSE 90–115; RESP 14–25; TEMP 36.2–36.8; O2SAT 96–100
--- NOTE | ~2023-10-25 | CT_ITS ---
EXAMINATION: CT abdomen pelvis w con DATE: 10/25/2023 12:50 INDICATION: Left lower quadrant pain TECHNIQUE: Computed tomography (CT) of the abdomen and pelvis was performed with 100 cc Omnipaque 350 intravenous contrast. The dose-length product was 1371.81 mGy-cm. Automated exposure control and ite rative reconstruction technique were employed. COMPARISON: None. FINDINGS: Lung bases are unremarkable. Heart size normal. No significant pleural or pericardial effus ion. Fatty infiltration of the liver. The spleen, pancreas, adrenal glands and kidneys are unremarkab le. Gallbladder is present. Bowel pattern nonobstructive. Appendix is thickened with mild surrounding inflammation, consistent with acute appendicitis. No evidence for perforation or abscess. There are mildly prominent ileocolic and common iliac chain lymph nodes, likely reactive. No free air or free f luid. No evidence for abscess. No acute osseous abnormality. IMPRESSION: 1. Acute uncomplicated appendicitis. Reviewed, dictated and finalized at location B.
--- NOTE | 2023-10-25 12:01 | ED.ABDPAIN ---
HPI - Abdominal Pain General Chief Complaint: Abdominal Pain Stated Complaint: abd pain Time Seen by Provider: 10/25/23 11:53 History of Present Illness HPI narrative: patient presents with abdominal pain, nausea vomiting that started in the night, since I started the left lower quadrant and seems to radiate to his right flank. No dysuria. Had similar symptoms in the past but that had resolved. No diarrhea Related Data Home Medications Medication Instructions Recorded Confirmed meloxicam submicronized 5 mg 5 mg PO DAILY 03/23/20 capsule Allergies Allergy/AdvReac Type Severity Reaction Status Date / Time No Known Allergies Allergy Verified 01/17/21 07:04 Review of Systems Review of Systems: All systems reviewed & are unremarkable except as noted in HPI and below PMFSH Past Medical History Medical History Cleft palate and cleft lip No pertinent past medical history Surgical History Surgical History History of repair of congenital cleft palate Social History Social History Smoking status: Never smoker Gender identity (if verbalized by the patient): Male Exam Narrative: EXAMINATION OF ORGAN SYSTEMS/BODY AREAS: Constitutional: Vital signs per nursing GENERAL:[No acute distress, non-toxic appearing.] appears slightly uncomfortable HEAD: Normal with no signs of head trauma. EYES: EOMI, conjunctiva normal ENT: Hearing grossly intact LUNGS: Nonlabored breathing. HEART: [Regular rate and rhythm] ABD: [Soft], [tender to palpation lower abdomen] EXT: Normal range of motion SKIN: [No rashes or lesions.] NEURO: [Alert and oriented x 3. No gross focal sensory or strength deficits.] PSYCH: Normal affect Course Vital Signs Vital signs: Vital Signs Temperature 98.2 F 10/25/23 12:07 Pulse Rate 92 10/25/23 12:07 Respiratory Rate 18 10/25/23 12:07 Blood Pressure 133/97 H 10/25/23 12:07 Pulse Oximetry 99 10/25/23 12:07 Oxygen Delivery Room Air 10/25/23 12:07 Temperature 98.2 F 10/25/23 12:07 Pulse Rate 94 10/25/23 13:02 Respiratory Rate 20 10/25/23 13:02 Blood Pressure 122/84 10/25/23 13:02 Pulse Oximetry 100 10/25/23 13:02 Oxygen Delivery Room Air 10/25/23 12:07 MDM - Abdominal Pain MDM Narrative Medical decision making narrative: 37-year-old male presenting with lower abdominal pain, nausea vomiting, he does appearing comfortable with lower abdominal discomfort, labs showing white blood cell count 16, he is given Zofran and morphine for pain, CT shows acute appendicitis. Patient updated on this finding, discussed with surgeon who will take him to the operating room. Lab Data 10/25/23 12:08 10/25/23 12:45 Labs: Lab Results 10/25/23 10/25/23 Range/Units 12:08 12:45 WBC 16.1 H (4.5-10.0) K/mm3 RBC 4.87 (4.6-6.20) M/mm3 Hgb 14.8 (14.0-18.0) g/dL Hct 43.7 (42.0-52.0) % MCV 89.7 (80-100) fl MCH 30.4 (26-34) pg MCHC 33.9 (32-36) g/dl RDW 12.1 (11.5-14.5) % Plt Count 238 (150-375) k/mm3 MPV 10.1 (7.4-10.4) fl Immature Gran % (Auto) 0.6 H (0-0.5) % Neut % (Auto) 84.9 H (45.5-73.1) % Lymph % (Auto) 7.5 L (18.3-44.2) % [place] % (Auto) 6.2 (2.6-8.5) % Eos % (Auto) 0.3 (0-4.4) % Baso % (Auto) 0.5 (0.2-1.2) % Lymph # (Auto) 1.21 (0.9-3.2) K/mm3 [place] # (Auto) 1.0 H (0.1-0.6) K/mm3 Eos # (Auto) 0.1 (0-0.3) K/mm3 Baso # (Auto) 0.1 (0.0-0.1) K/mm3 Abs Immat Gran (auto) 0.09 H (0.00-0.031) K/mm3 Absolute Neuts (auto) 13.7 H (1.3-6.7) K/mm3 Absolute Nucleated RBC 0.000 (0.0-0.012) K/mm3 Nucleated RBC % 0.0 (0.0-0.2) % Sodium 138 (137-145) mmol/L Potassium 4.7 (3.4-5.0) mmol/L Chloride 104 (98-107) mmol/L Carbon Dioxide 26 (22-30) mmol
[2023-10-25] MEDS: ONDANSETRON INJ 4 MG/2 ML VIAL IV PUSH ×2 (12:21→16:37)
[2023-10-25] MEDS: MORPHINE SULFATE (*CRX) 4 MG/ML INJ IV PUSH (12:21)
[2023-10-25 12:28] LABS: Basophils Absolute Auto 0.1 K/mm3 (0.0-0.1); Basophils Percent Auto 0.5 % (0.2-1.2); Eosinophils Absolute Auto 0.1 K/mm3 (0-0.3); Eosinophils Percent Auto 0.3 % (0-4.4); Hematocrit 43.7 % (42.0-52.0); Hemoglobin 14.8 g/dL (14.0-18.0); Immature Granulocyte Absolute 0.09 K/mm3 (0.00-0.031); Immature Granulocyte Percent A 0.6 % (0-0.5); Lymphocytes Absolute Auto 1.21 K/mm3 (0.9-3.2); Lymphocytes Percent Auto 7.5 % (18.3-44.2); Mean Corpuscular HGB Conc 33.9 g/dl (32-36); Mean Corpuscular Hemoglobin 30.4 pg (26-34); Mean Corpuscular Volume 89.7 fl (80-100); Mean Platelet Volume 10.1 fl (7.4-10.4); Monocytes Percent Auto 6.2 % (2.6-8.5); Neutrophils Absolute Auto 13.7 K/mm3 (1.3-6.7); Neutrophils Percent Auto 84.9 % (45.5-73.1); Platelet Count Result 238 k/mm3 (150-375); Red Blood Count 4.87 M/mm3 (4.6-6.20); Red Cell Distribution Width 12.1 % (11.5-14.5); White Blood Count 16.1 K/mm3 (4.5-10.0)
[2023-10-25 12:33] LABS: Appearance Urine Clear (Clear); Bilirubin Urine Negative (Negative); Blood Urine Negative (Negative); Color Urine Yellow (Yellow); Glucose Urine UA Negative (Negative); Ketones Urine Negative (Negative); Leukocyte Esterase Ur Negative LEU/UL (Negative); Nitrate Urine Negative (Negative); Protein Urine Negative (Negative); Specific Grav Ur 1.018 (1.001-1.035); Urobilinogen Urine 0.2 mg/dL (<2.0)
[2023-10-25 12:38] LABS: Add Urine Microscopic? NO
[2023-10-25 12:49] LABS: Alanine Aminotransferase 33 U/L (6-50); Albumin Level 4.9 g/dL (3.5-5.1); Alkaline Phosphatase 70 U/L (38-126); Anion Gap 8 mmol/L (4-12); Aspartate Amino Transferase 26 U/L (17-59); Bilirubin,Total 0.6 mg/dL (0.2-1.3); Blood Urea Nitrogen 11 mg/dL (9-20); Calcium 9.7 mg/dL (8.4-10.2); Carbon Dioxide 26 mmol/L (22-30); Chloride 104 mmol/L (98-107); Estimated CRCL calculation 140 ml/min; Estimated Glomerular Filt Rate > 60; Glucose 102 mg/dL (65-110); Lipase 56 U/L (23-300); Potassium 4.7 mmol/L (3.4-5.0); Sodium 138 mmol/L (137-145)
[2023-10-25 12:50] LABS: Estimated CRCL calculation 125 ml/min; Estimated Glomerular Filt Rate > 60
[2023-10-25] MEDS: PIPERACILLN/TAZ 3.375GM/NS50ML 3.375 GM/50 ML BAG IVPB (13:36)
--- NOTE | 2023-10-25 14:18 | PM.IMHP ---
H&P: HPI History of Present Illness Date/Time: 10/25/23 14:18 Chief Complaint: Acute appendicitis Narrative: Patient is a 7-year-old male who presented to the emergency room with a 12hour history of worsening right lower quadrant abdominal pain. Came to the emergency room gauze the pain was worse. [place] [address]. The pelvis was performed showing a dilated thickened appendix with a small amount of periappendiceal inflammation. No perforation or abscess is seen. Review of Systems Review of Systems: The remainder of the review of systems to include constitutional, HEENT, cardiovascular, respiratory, GI, , integumentary, musculoskeletal, endocrine, immunologic, hematologic, psychiatric, and neurologic are all negative except for which is mentioned above in the HPI. [facility] Past Medical History Medical History Cleft palate and cleft lip No pertinent past medical history Surgical History Surgical History History of repair of congenital cleft palate Social History Social History Smoking status: Never smoker Gender identity (if verbalized by the patient): Male Meds Home Medications and Allergies Home Medications Medication Instructions Recorded Confirmed Type meloxicam submicronized 5 mg 5 mg PO DAILY 03/23/20 History capsule cyclobenzaprine 10 mg tablet 10 mg PO TID PRN muscle spasm #20 01/17/21 Rx tabs naproxen 500 mg tablet (Naprosyn) 500 mg PO BID PRN pain #14 tabs 01/17/21 Rx naproxen 500 mg tablet 500 mg PO BID #14 tabs 05/23/22 Rx azithromycin 250 mg tablet See Rx Instructions PO .COMPLEX #6 10/02/22 Rx (Zithromax Z-Alcides) tabs levofloxacin 500 mg tablet 500 mg PO DAILY #10 tabs 08/13/23 Rx Allergies Allergy/AdvReac Type Severity Reaction Status Date / Time No Known Allergies Allergy Verified 01/17/21 07:04 Vital Signs Vital Signs - 24 hr 10/25/23 12:07 10/25/23 12:16 10/25/23 12:32 Temperature 36.8 C Pulse Rate 92 94 92 Respiratory Rate 18 17 Blood Pressure 133/97 H 133/97 H 125/91 H Pulse Oximetry 99 99 97 Oxygen Delivery Room Air 10/25/23 12:57 10/25/23 13:00 10/25/23 13:02 Temperature Pulse Rate 95 92 94 Respiratory Rate 20 18 20 Blood Pressure 125/86 122/84 Pulse Oximetry 99 98 100 Oxygen Delivery Exam Const: General: comfortable and no acute distress HENMT: Ears: TM's normal bilaterally Face/Nose/Sinus: Normal nares present Mouth: Yes moist mucous membranes Eyes: General: appearance normal, both eyes and all related structures Sclera: sclerae normal Pupils: Equal, round and reactive pupils present EOM: EOMs intact bilaterally Neck: Neck: supple and no JVD Resp: Effort & Inspection: normal respiratory effort Auscultation: clear to auscultation bilaterally Cardio: Rate: regular rate Rhythm: regular rhythm GI: Other: Soft moderately obese. Moderate tenderness to palpation right lower quadrant. Mild guarding but no generalized peritoneal signs. No ventral hernias. Skin: General skin exam: normal color and no rashes or lesions noted Neuro: General: gait normal Speech: normal speech Motor exam (neuro): 5/5 motor strength present throughout and Motor abnormalites present Sensory Exam: normal sensation Extrem: General: normal to inspection Psych: Affect: normal affect H&P: Results Labs Labs: Short CBC 10/25/23 Range/Units 12:08 WBC 16.1 H (4.5-10.0) K/mm3 Hgb 14.8 (14.0-18.0) g/dL Hct 43.7 (42.0-52.0) % Plt Count 238 (150-375) k/mm3 [facility] 10/25/23 10/25/23 12:08 12:45 Sodium 138 Potassium 4.7 Chloride 104 Carbon Dioxide 26 BUN 11 Creatinine 0.80 0.90 Glucose 102 Calcium 9.7 Liver Function 10/25/23 Range/Units 12:08 Total Bilirubin 0.6 (0.2-1.3) mg/dL AST 26
--- NOTE | 2023-10-25 14:22 | WPDHPUPDATE1 ---
History and Physical Update Update Date/Time: 10/25/23 14:22 History and Physical has been reviewed, including an updated exam of the patient. There are NO changes in the patient's condition. Risks, benefits, and alternatives have been discussed and questions answered. Patient agrees to proceed with procedure.
--- NOTE | 2023-10-25 14:41 | WPDANESEPPF ---
Anes - Initial Pre Proc Eval Procedure: Operation Date: 10/25/23 14:45 Proposed Procedures p Laparoscopic Appendectomy - Dalton Flores MD Date/Time: 10/25/23 14:41 Surgeon: Dalton Flores MD Pre Op Diagnosis: abd pain Patient Data Age: 37 Gender: M Height: 1.8 m Weight: 109 kg Last Vital Signs Temp 36.8 C 10/25/23 12:07 Pulse 94 10/25/23 13:02 Resp 20 10/25/23 13:02 BP 122/84 10/25/23 13:02 Pulse Ox 100 10/25/23 13:02 O2 Del Method Room Air 10/25/23 12:07 Allergies Allergy/AdvReac Type Severity Reaction Status Date / Time No Known Allergies Allergy Verified 01/17/21 07:04 Home Medications Medication Instructions Recorded Confirmed Type meloxicam submicronized 5 mg 5 mg PO DAILY 03/23/20 History capsule cyclobenzaprine 10 mg tablet 10 mg PO TID PRN muscle spasm #20 01/17/21 Rx tabs naproxen 500 mg tablet (Naprosyn) 500 mg PO BID PRN pain #14 tabs 01/17/21 Rx naproxen 500 mg tablet 500 mg PO BID #14 tabs 05/23/22 Rx azithromycin 250 mg tablet See Rx Instructions PO .COMPLEX #6 10/02/22 Rx (Zithromax Z-Alcides) tabs levofloxacin 500 mg tablet 500 mg PO DAILY #10 tabs 08/13/23 Rx Laboratory Tests 10/25/23 10/25/23 12:08 12:45 WBC 16.1 H K/mm3 (4.5-10.0) RBC 4.87 M/mm3 (4.6-6.20) Hgb 14.8 g/dL (14.0-18.0) Hct 43.7 % (42.0-52.0) MCV 89.7 fl (80-100) MCH 30.4 pg (26-34) MCHC 33.9 g/dl (32-36) RDW 12.1 % (11.5-14.5) Plt Count 238 k/mm3 (150-375) MPV 10.1 fl (7.4-10.4) Immature Gran % (Auto) 0.6 H % (0-0.5) Neut % (Auto) 84.9 H % (45.5-73.1) Lymph % (Auto) 7.5 L % (18.3-44.2) [place] % (Auto) 6.2 % (2.6-8.5) Eos % (Auto) 0.3 % (0-4.4) Baso % (Auto) 0.5 % (0.2-1.2) Lymph # (Auto) 1.21 K/mm3 (0.9-3.2) [place] # (Auto) 1.0 H K/mm3 (0.1-0.6) Eos # (Auto) 0.1 K/mm3 (0-0.3) Baso # (Auto) 0.1 K/mm3 (0.0-0.1) Abs Immat Gran (auto) 0.09 H K/mm3 (0.00-0.031) Absolute Neuts (auto) 13.7 H K/mm3 (1.3-6.7) Absolute Nucleated RBC 0.000 K/mm3 (0.0-0.012) Nucleated RBC % 0.0 % (0.0-0.2) Sodium 138 mmol/L (137-145) Potassium 4.7 mmol/L (3.4-5.0) Chloride 104 mmol/L (98-107) Carbon Dioxide 26 mmol/L (22-30) Anion Gap 8 mmol/L (4-12) BUN 11 mg/dL (9-20) Creatinine 0.80 mg/dL 0.90 mg/dL (0.7-1.3) (0.8-1.5) Estim Creat Clear Calc 140 ml/min 125 ml/min Estimated GFR > 60 > 60 (59 - ) (59 - ) Glucose 102 mg/dL (65-110) Calcium 9.7 mg/dL (8.4-10.2) Total Bilirubin 0.6 mg/dL (0.2-1.3) AST 26 U/L (17-59) ALT 33 U/L (6-50) Alkaline Phosphatase 70 U/L (38-126) Total Protein 8.0 g/dL (6.3-8.2) Albumin 4.9 g/dL (3.5-5.1) Lipase 56 U/L (23-300) Urine Color Yellow (Yellow) Urine Appearance Clear (Clear) Urine pH 8.0 (5.0-9.0) Ur Specific [place] 1.018 (1.001-1.035) Urine Protein Negative mg/dL (Negative) Urine Glucose (UA) Negative mg/dL (Negative) Urine Ketones Negative mg/dL (Negative) Ur Blood (Man) Negative (Negative) Urine Nitrate Negative (Negative) Urine Bilirubin Negative (Negative) Urine Urobilinogen 0.2 mg/dL (<2.0) Leukocyte Esterase Rfl Negative SHARI/UL (Negative) Patient hx anesthesia problems: none Family hx anesthesia problems: none Results Review: All pre-operative results and documents have been reviewed as part of the pre-operative evaluation. [facility] Past Medical History Medical History (Updated 10/25/23 @ 14:42 by Raulito Cavazos DO) Cleft palate and cleft lip Hyperlipidemia Hypertension No pertinent past medical history Surgical History Surgical History (Reviewed 10/25/23
[2023-10-25] MEDS: LIDO 1%/EPINEPHRINE 1:100,000 20 ML VIAL 30 ML INFILTRATE (15:12)
[2023-10-25] MEDS: BUPivacaine HCL 0.5% PF 30 ML VIAL INFILTRATE (15:12)
[2023-10-25] MEDS: KETOROLAC 30 MG/ML VIAL (*BKC) IV PUSH (15:29)
--- NOTE | 2023-10-25 15:57 | W.PM.PROC2 ---
Procedure Note - Detailed Date of Procedure 10/25/23 Pre-op Diagnosis Acute appendicitis Post-op Diagnosis Same Procedure Performed Laparoscopic appendectomy. Surgeon Dalton Flores MD Cutting Table Operator First AMANDA Sommers Anesthesia General Indications Patient is a 37-year-old white male presents to the emergency room with a a 12hour history of worsening lower abdominal pain which was in the periumbilical region. No nausea or vomiting. White Blood cell count was elevated 16,000 on admission to the emergency room. CT scan abdomen pelvis showed a dilated acutely inflamed appendix with some periappendiceal stranding. No perforation abscess was seen. Findings Acutely inflamed appendix without perforation or gangrene of the wall. Base the appendix was viable without significant inflammation. Description of Procedure After informed consent was obtained patient brought to the operating room was placed supine position and general endotracheal anesthesia was administered. A Echeverria catheter was placed decompress the bladder. The abdomen was then prepped and draped usual sterile fashion. A time-out was then performed correctly identifying the patient as well as the procedure to be performed. He was already given a dose of IV antibiotics in the emergency room. I entered the abdomen left upper quadrant utilizing a 5mm Optiview port. Once inside the abdomen I insufflated to adequate pneumoperitoneum of 15mmHg of CO2. I then placed a 12mm periumbilical trocar port and then 2 more 5mm trocar ports in the suprapubic region the right lower quadrant the abdomen. I then switched the laparoscopic over to the supraumbilical trocar port site and then working through the remaining trocar ports under laparoscopic instruments identified the appendix inferior and lateral to the cecum. I was able to hold the appendix up near the base and then made a defect through the mesoappendix utilizing [place] dissector. I then used a 45mm Endo-HOUSTON stapler to divide the appendix flush with the cecum. A vascular reload to the Endo-HOUSTON stapler was then used to divide the mesoappendix. The appendix was then placed into an Endo-Catch bag and brought out through the periumbilical trocar port site. The appendix was sent to pathology for examination. I then irrigated out the right lower quadrant the abdomen copious sterile saline solution hemostasis was good. I then aspirated all the fluid. I then checked and there was no bleeding from the staple lines and they were intact. I then removed all the trocar ports under visualization all port sites appeared hemostatic. I then allowed the abdomen decompressed. I then irrigated the port sites sterile saline solution hemostasis was good. I then closed the 12mm periumbilical trocar port fascial defect utilizing 0 Vicryl suture. The fascial edges close easily without any tension. I then closed all the port site incisions at the skin level utilizing a running subcuticular 4 Monocryl suture. Incisions were then cleaned the skin glue sterile dressings were applied. The patient tolerated the procedure well no complications. All sponges, needles, and instrument counts were correct at the end procedure. EBL was _10__cc. The patient was awakened and taken to recovery in stable and satisfactory condition. Implants None Estimated Blood Loss 10 Drains No Packing No Pathology Yes (Appendix to pathology) Complications No immediate complications Condition Stable Disposition PACU [facility] Billing Surgery - Charge Forward: Surgery Billing
[2023-10-25] MEDS: LACTATED RINGERS 1,000 ML 30 ML IV CONT (15:58)
[2023-10-25] MEDS: fentaNYL CITRATE INJ (*CRX) 100 MCG/2 ML VIAL 25 MCG IV PUSH ×4 (16:15→16:30)
[2023-10-25] MEDS: oxyCODONE HCL (*CRX) 5 MG TAB IR PO (17:19)
== END 2023-10-25 18:00 | disposition home or self-care (01) ==
LOC: ANHED 13:30 → ANHSURGERY 14:33
PROVIDERS: Emergency Provider Emergency Medicine; PCP Physician Assistant; Visit Provider Surgery
PROC: 0DTJ4ZZ Resection of Appendix, Percutaneous Endoscopic Approach (ICD-10-PCS; CPT 44970; principal; 2023-10-25 14:45)
DX: K35.80 Unspecified acute appendicitis (principal)
CPT/HCPCS: 44970; 36415; 74177; 80053; 81003; 83690; 85025; 88304; 96365; 96375; 99285; A9270; J0330; J1100; J1885; J2250; J2270; J2405; J2543; J2704; J3010; J7120; Q9967

== ENCOUNTER 2024-02-04 08:37 | Emergency (ER) | payer OTHER, SELFPAY ==
[2024-02-04] VITALS (9 sets, daily range): BP systolic 103–155; BP diastolic 73–101; PULSE 84–124; RESP 12–23; TEMP 36.6–36.8; O2SAT 94–100
--- NOTE | 2024-02-04 10:36 | ED.ABDPAIN ---
HPI - Abdominal Pain General Chief Complaint: Abdominal Pain <Hellen Harley PA-C - Last Filed: 02/04/24 18:16> Stated Complaint: abd pain <Hellen Harley PA-C - Last Filed: 02/04/24 18:16> Time Seen by Provider: 02/04/24 10:36 <Hellen Harley PA-C - Last Filed: 02/04/24 18:16> Focused HPI: This is a 38 year old male that presents to the ER for bilateral lower abdominal pain. Ongoing over the last week. Reports intermittent left mid back pain. Reports history of appendectomy about 3 months ago. Denies fever, vomiting, diarrhea, dysuria or hematuria. GENERAL: Well-appearing, well-nourished, and in no acute distress. HEAD: Normocephalic, atraumatic. CHEST: Clear to auscultation. ?No respiratory distress. HEART: Regular rate and rhythm.? NEURO: ?Alert and oriented x3. Patient screened in triage and initial orders placed.? ?Additional care and disposition to be based upon?diagnostic testing and treatment. <Hellen Harley PA-C - Last Filed: 02/04/24 18:16> History of Present Illness HPI narrative: Agree with HPI. Intermittent bilateral abdominal pain over last couple weeks. Improves with Tylenol and ibuprofen. No diarrhea or constipation. He is having normal bowel movements and passing gas. Denies fevers or chills or sweats. No urinary frequency urgency or dysuria. Patient developed some concern because of previous appendectomy 3 months ago and is concerned there could be a complication. <Nirav Lombardi MD - Last Filed: 02/04/24 12:35> Related Data Allergies/Adverse Reactions: Allergies Allergy/AdvReac Type Severity Reaction Status Date / Time No Known Allergies Allergy Verified 02/04/24 08:52 <Hellen Harley PA-C - Last Filed: 02/04/24 18:16> Review of Systems Review of Systems: All systems reviewed & are unremarkable except as noted in HPI and below <Nirav Lombardi MD - Last Filed: 02/04/24 12:35> Constitutional: Constitutional: Reports no additional constitutional complaints <Nirav Lombardi MD - Last Filed: 02/04/24 12:35> ENT: Reports system reviewed and no additional complaints, except as documented <Nirav Lombardi MD - Last Filed: 02/04/24 12:35> Cardiovascular: Cardiovascular: Reports no additional cardiovascular complaints <Nirav Lombardi MD - Last Filed: 02/04/24 12:35> Respiratory: Respiratory: Reports no additional respiratory complaints <Nirav Lombardi MD - Last Filed: 02/04/24 12:35> Gastrointestinal: Gastrointestinal: Reports abdominal pain, Denies constipation, Denies diarrhea, Denies nausea and Denies vomiting <Nirav Lombardi MD - Last Filed: 02/04/24 12:35> PMFSH Past Medical History Medical History: Medical History Cleft palate and cleft lip Hyperlipidemia Hypertension No pertinent past medical history <Hellen Harley PA-C - Last Filed: 02/04/24 18:16> Surgical History Surgical History: Surgical History History of laparoscopic appendectomy 10/25/23 History of repair of congenital cleft palate <Hellen Harley PA-C - Last Filed: 02/04/24 18:16> Social History Social History: Social History Smoking status: Former smoker Smoking end date: 10/25/23 Alcohol intake: current Alcohol use details: 10 drinks per weekend night Gender identity (if verbalized by the patient): Male <Hellen Harley PA-C - Last Filed: 02/04/24 18:16> Exam Narrative: GENERAL: Well-appearing, well-nourished, and in no acute distress. HEAD: Normocephalic, atraumatic. ENT: Mucous membranes moist. CHEST: Clear to auscultation. No respiratory distress. HEART: Regular rate and rhythm. Normal peripheral pulses. ABDOMEN: Soft, nontender, nondistended. EXTREMITIES: Normal range of motion. No edema. SKIN: Warm, dry, no rash. NEURO: Alert and orient
[2024-02-04 11:21] LABS: Basophils Absolute Auto 0.1 K/mm3 (0.0-0.1); Basophils Percent Auto 0.9 % (0.2-1.2); Eosinophils Absolute Auto 0.2 K/mm3 (0-0.3); Eosinophils Percent Auto 2.7 % (0-4.4); Hematocrit 45.2 % (42.0-52.0); Hemoglobin 15.1 g/dL (14.0-18.0); Immature Granulocyte Absolute 0.03 K/mm3 (0.00-0.031); Immature Granulocyte Percent A 0.4 % (0-0.5); Lymphocytes Absolute Auto 2.57 K/mm3 (0.9-3.2); Lymphocytes Percent Auto 30.4 % (18.3-44.2); Mean Corpuscular HGB Conc 33.4 g/dl (32-36); Mean Corpuscular Hemoglobin 30.3 pg (26-34); Mean Corpuscular Volume 90.6 fl (80-100); Mean Platelet Volume 9.6 fl (7.4-10.4); Monocytes Absolute Auto 0.7 K/mm3 (0.1-0.6); Neutrophils Absolute Auto 4.9 K/mm3 (1.3-6.7); Neutrophils Percent Auto 57.6 % (45.5-73.1); Platelet Count Result 258 k/mm3 (150-375); Red Blood Count 4.99 M/mm3 (4.6-6.20); Red Cell Distribution Width 12.2 % (11.5-14.5); White Blood Count 8.5 K/mm3 (4.5-10.0)
[2024-02-04 11:23] LABS: Add Urine Microscopic? NO; Appearance Urine Clear (Clear); Bilirubin Urine Negative (Negative); Blood Urine Negative (Negative); Color Urine Yellow (Yellow); Glucose Urine UA Negative (Negative); Ketones Urine Negative (Negative); Leukocyte Esterase Ur Negative LEU/UL (Negative); Nitrate Urine Negative (Negative); Protein Urine Negative (Negative); Specific Grav Ur 1.008 (1.001-1.035); Urobilinogen Urine 0.2 mg/dL (<2.0); pH Urine 7.5 (5.0-9.0)
[2024-02-04 11:34] LABS: Alanine Aminotransferase 53 U/L (6-50); Alkaline Phosphatase 69 U/L (38-126); Anion Gap 12 mmol/L (4-12); Aspartate Amino Transferase 31 U/L (17-59); Bilirubin,Total 0.3 mg/dL (0.2-1.3); Blood Urea Nitrogen 13 mg/dL (9-20); Calcium 9.8 mg/dL (8.4-10.2); Carbon Dioxide 26 mmol/L (22-30); Chloride 99 mmol/L (98-107); Estimated CRCL calculation 140 ml/min; Estimated Glomerular Filt Rate > 60; Glucose 93 mg/dL (65-110); Lipase 79 U/L (23-300); Potassium 4.8 mmol/L (3.4-5.0); Sodium 137 mmol/L (137-145)
== END 2024-02-04 12:34 | disposition home or self-care (01) ==
PROVIDERS: Physician Assistant; Emergency Provider Emergency Medicine; PCP Physician Assistant
DX: R10.31 Right lower quadrant pain (principal); R10.32 Left lower quadrant pain; E78.5 Hyperlipidemia, unspecified; I10 Essential (primary) hypertension; Z87.891 Personal history of nicotine dependence
CPT/HCPCS: 36415; 80053; 81003; 83690; 85025; 99283

== ENCOUNTER 2024-05-31 07:57 | Emergency (ER) | payer OTHER, SELFPAY ==
--- NOTE | ~2024-05-31 | XR_ITS ---
EXAMINATION: XR hip RT 2V w AP pelvis DATE: 05/31/2024 09:28 INDICATION: Right hip pain. Fall. TECHNIQUE: An anteroposterior view of the pelvis and 2 views of right hip were obtained. COMPARISON: None. FINDINGS: Alignment is normal. No fracture. The hip joint spaces are normal. IMPRESSION: 1. Normal pelvis and right hip. Reviewed, dictated and finalized at location A. [employer]
[2024-05-31 08:03] VITALS: BP 145/95; PULSE 108; RESP 18; TEMP 36.9; O2SAT 100
--- NOTE | 2024-05-31 09:10 | ED_ITS ---
HPI - Fall General Chief Complaint: Fall Stated Complaint: fall, back pain Time Seen by Provider: 05/31/24 08:31 Source: patient Mode of arrival: ambulatory Limitations: no limitations History of Present Illness HPI Narrative: Patient presents with back pain and right-sided pain after a fall at work when he slipped on the ice. He did not lose consciousness or hit his head. He has not yet taken anything for pain yet. Although he initially had stated right shoulder and right elbow pain, he states these are very mild and more significantly he is having right hip pain that radiates to the left. No paresthesias. Related Data Allergies Allergy/AdvReac Type Severity Reaction Status Date / Time No Known Allergies Allergy Verified 02/04/24 08:52 [facility] Past Medical History Medical History Cleft palate and cleft lip Hyperlipidemia Hypertension No pertinent past medical history Surgical History Surgical History History of laparoscopic appendectomy 10/25/23 History of repair of congenital cleft palate Social History Social History Smoking status: Former smoker Smoking end date: 10/25/23 Alcohol intake: current Alcohol use details: 10 drinks per weekend night Occupation/Education: occupation Gender identity (if verbalized by the patient): Male Exam Narrative: GENERAL: Well-appearing, well-nourished, and in no acute distress. HEAD: Normocephalic, atraumatic. EYES: Non injected, non icteric ENT: Nares clear, no rhinorrhea or epistaxis. NECK: Supple. CHEST: Speaking in full sentences. No respiratory distress. HEART: Tachycardic rate and rhythm. . ABDOMEN: Obese but Soft, nondistended. No tenderness to palpation and without rigidity or guarding. Not peritoneal Pelvis: Hips stable to compression. No tenderness to palpation of bilateral hips. EXTREMITIES: Normal range of motion. Demonstrates flexion extension at the elbow which is without bony deformity and skin is intact. Demonstrates a fair amount of range of motion of the right shoulder. No lower extremity edema. SKIN: Warm, dry, no rash. NEURO: No focal deficits. Alert and oriented x3. PSYCH: Normal mood and affect. Course Vital Signs Vital signs: Vital Signs Temperature 98.4 F 05/31/24 08:03 Pulse Rate 108 H 05/31/24 08:03 Respiratory Rate 18 05/31/24 08:03 Blood Pressure 145/95 H 05/31/24 08:03 Pulse Oximetry 100 05/31/24 08:03 Oxygen Delivery Room Air 05/31/24 08:03 Temperature 98.4 F 05/31/24 08:03 Pulse Rate 102 H 05/31/24 11:07 Respiratory Rate 18 05/31/24 11:07 Blood Pressure 140/87 05/31/24 11:07 Pulse Oximetry 100 05/31/24 11:07 Oxygen Delivery Room Air 05/31/24 08:03 MDM - Fall MDM Narrative Medical decision making narrative: Patient presents with pain on his right side after falling when he slipped on the ice. No loss of consciousness any did not hit his head. Initially complaining of some right shoulder and elbow pain although he states the ears are mild in comparison to the other pain he was complaining of which is his right hip. In the emergency department he is afebrile with vital signs that show mild tachycardia as well as hypertension. We discussed that even if imaging is negative, patient should expect to be sore and achy over the next several days and that a multimodal pain strategy regimen can help with this to balance both rest with maintaining stretching and exercising and movements of that he does not become more stiff. He verifies understanding. He is given initial doses of analgesic medication while in the emergency department. He declines shoulder and elbow imaging which is reasonable as these have a reassuring physical exam. He does to proceed with hip imaging and this is negative. Discharged with prescriptions for acetaminophen, ibuprofen, muscle relaxant air, and topical approach. Differential Diagnosis Differential diagnosis: Likely other (Fracture, dislocation, bony contusion, soft tissue contusion) Imaging Data Radiologist's impression: Impressions Hip/Pelvis X-Ray 05/31/24 09:30 IMPRESSION: 1. Normal pelvis and right hip. Discharge Plan Discharge Clinical Impression: Fall due to ice or snow, Acute pain of right hip, Acute back pain Patient Disposition: Home, Self-Care Condition: Stable Instructions: Antibiotic Form, Low Back Strain (ED), Acute Low Back Pain (ED), Fall Prevention (ED), Hip Pain (ED), Lower Back Exercises (ED) Additional Instructions: As we discussed, you will likely be sore and achy today and for the next several days. Use the multimodal pain regimen of prescriptions to help target the pain in a variety of ways (pain receptors, inflammation, muscle relaxation, topical). Follow-up with your primary care physician. Return to the emergency department with any new/worsening/unmanaged symptoms including if you have increased pain in your back, you develop lower extremity weakness/numbness/paralysis, you have numbness or tingling in your private parts, or you are unable to control your ability to urinate/stool. Patient Language: Afghan Prescriptions: New methocarbamol 750 mg tablet 1,500 mg PO HS Qty: 14 0RF ibuprofen 600 mg tablet 600 mg PO TID PRN (Reason: pain) Qty: 30 0RF acetaminophen 500 mg capsule 1,000 mg PO Q6H PRN (Reason: pain) Qty: 30 0RF lidocaine 4 % adhesive patch,medicated 1 patch topical DAILY PRN (Reason: pain) Qty: 5 0RF No Action simethicone 125 mg capsule 125 mg PO QID Qty: 20 0RF Rx Instructions: administer after meals and at bedtime dicyclomine 20 mg tablet 20 mg PO QID Qty: 20 0RF Follow-up/Referrals: Sushil,FATOU Vinson [Primary Care Provider] - Stand Alone Forms: Work/School Release IP Time of Disposition: 10:47
[2024-05-31] MEDS: HYDROcodone/acetaminophen (*CRX) 5-325 MG TABLET 1 TAB PO (09:15)
[2024-05-31] MEDS: KETOROLAC 30 MG/ML VIAL (*BKC) 15 MG IM (09:44)
[2024-05-31 11:07] VITALS: BP 140/87; PULSE 102; RESP 18; O2SAT 100
== END 2024-05-31 11:08 | disposition home or self-care (01) ==
PROVIDERS: Emergency Provider Student in an Organized Health Care Education/Training Program; PCP Physician Assistant
DX: M54.9 Dorsalgia, unspecified (principal); M25.551 Pain in right hip; W00.0XXA Fall on same level due to ice and snow, initial encounter; E78.5 Hyperlipidemia, unspecified; I10 Essential (primary) hypertension; Z87.891 Personal history of nicotine dependence
CPT/HCPCS: 73502; 96372; 99283; A9270; J1885

== ENCOUNTER 2024-06-23 09:09 | Outpatient (CLI) | payer OTHER, SELFPAY ==
--- NOTE | ~2024-06-23 | XR_ITS ---
EXAMINATION: XR lumbar spine 2-3V DATE: 06/23/2024 09:30 INDICATION: Low back pain. TECHNIQUE: 3 views of lumbar spine were obtained. COMPARISON: Lumbar spine radiograph 09/11/2011 FINDINGS: Alignment is normal. Vertebral body heights are normal. Intervertebral disc heights are nor mal. There are endplate osteophytes at multiple levels. The lumbar facet joints are unremarkable. IMPRESSION: 1. Mild lumbar spondylosis. Reviewed, dictated and finalized at location A. 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 Mild lumbar spondylosis.
== END 2024-06-23 09:10 | disposition home or self-care (01) ==
LOC: ANHIMG 09:15
PROVIDERS: PCP Physician Assistant; Visit Provider Physician Assistant
DX: M47.816 Spondylosis without myelopathy or radiculopathy, lumbar region (principal)
CPT/HCPCS: 72100

== ENCOUNTER 2024-08-18 13:00 | Outpatient (RCR) | payer OTHER, SELFPAY ==
--- NOTE | 2024-06-28 10:04 | OPREHPOC ---
Outpatient Therapy Plan of Care This is a Multidisciplinary Plan of Care that may contain components documented by all disciplines (PT, OT, and ST.) PT Problem 1 PT Problem #1 Knowledge Deficit PT Goal 1 Goal / Goal Update *indep with HEP Target Visit 8 PT Problem 2 PT Problem #2 Pain PT Goal 1 Goal / Goal Update * pt report able to sleep in his bed Target Visit 8 PT Goal 2 Goal / Goal Update * self assessment Oswestry rating of 38% limitation in activity level Target Visit 8 PT Problem 3 PT Problem #3 Impaired Flexibility PT Goal 1 Goal / Goal Update increase R and L hip flexibility to decrease pull on lumbar-sacral spine: hamstring length with supine SLR 1* R 55' 2* L 55' supine hip flexion to 100' 3* R 4* L piriformis length with supine cross leg, knee to mid line of body 5* R 6* L Target Visit 8 PT Problem 4 PT Problem #4 Impaired Functional Mobility PT Goal 1 Goal / Goal Update * improve mobility skills: 2 minute walking test distance of 350' Target Visit 8 PT Goal 2 Goal / Goal Update * pt perform bilateral UE lift of 20# box from waist/floor height, 3x with correct technique
--- NOTE | 2024-06-28 10:04 | PTOPEVAL1 ---
Assessment and note entered by Celine Lawson, PT Evaluation Information Assessment Status Evaluation ICD-10 Condition Codes (PT) Pain in low back M54.50 Onset 05-31-24 Subjective Information to ER 05-31-24: fell on ice, land on R side; x ray:R hip negative; lumbar: mild lumbar spondylosis; since fall, have been taking it easy and resting, not doing much; not working at this time. Activity: [employer]; indep with all activity Reported Pain Level Pain Score Self Report Additional Pain Score Comments pain range of the past week: 2-8/10; R > L lumbar no radicular pain increase pain: walking/standing in home 10 minutes decrease pain: sit, resting, ice, heat, muscle relaxer is sleeping in recliner due to back pain--back wakes him up 1x/night Assessment PT Clinical Summary Javed has the diagnosis of back pain. Onset after falling on ice. Self assessment with Oswestry rating of 54% limitation in activity level. Reported sleeping, walking and standing tolerances are decreased due to pain. He has release to be off work until Mid July. 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 With the evaluation: pain and spasms over R and L lumbar areas R>L; tightness over R and L hip flexion, IR, piriformis and hamstring muscle groups; 2 minute walking test distance of 275' with pain increase to 8/10; Skilled PT services are indicated for modalities to decrease pain, therapeutic exercises to increase flexibility and strength with education for HEP and posture/body mechanics. Plan of Care Interventions Electrical Stimulation,Hot Pack/Cold Pack,Manual Therapy,Mechanical Traction,Neuro Re-education, Patient/Caregiver Education,Therapeutic Activities ,Therapeutic Exercise,Ultrasound,Wheelchair Training Other Interventions taping PT Services Indicated Yes Treatment Frequency and 2x/wk for 8 visits Duration These treatments will address the objective and functional deficits as defined above. The patient will be advanced safely and appropriately in order for the patient to progress towards his/her prior level of function. Additional exercises will be introduced and as well as a comprehensive home exercise program upon discharge, if needed, ?to ensure carryover of functional gains achieved in the clinic. This treatment plan has been reviewed and agreement upon by the patient.
--- NOTE | 2024-07-08 08:55 | PCPTNOTE ---
Canceled, ill. AKS
--- NOTE | 2024-07-22 10:51 | OPREHPOC ---
Outpatient Therapy Plan of Care This is a Multidisciplinary Plan of Care that may contain components documented by all disciplines (PT, OT, and ST.) PT Problem 1 PT Problem #1 Knowledge Deficit PT Goal 1 Goal / Goal Update *indep with HEP 07-22-24 progress goal met continue towards goal Target Visit 15 PT Problem 2 PT Problem #2 Pain PT Goal 1 Goal / Goal Update * pt report able to sleep in his bed 07-22-24 progress goal met NEW GOAL: pt report sleeping in his bed the entire night Target Visit 15 PT Goal 2 Goal / Goal Update * self assessment Oswestry rating of 38% limitation in activity level 07-22-24 progress goal met NEW GOAL: * Oswestry rating of 20% limitation in activity level Target Visit 15 PT Problem 3 PT Problem #3 Impaired Flexibility PT Goal 1 Goal / Goal Update increase R and L hip flexibility to decrease pull on lumbar-sacral spine: hamstring length with supine SLR 1* R 55' 2* L 55' supine hip flexion to 100' 3* R 4* L piriformis length with supine cross leg, knee to mid line of body 5* R 6* L 07-22-24 progress goals met NEW goal: * pt perform R piriformis stretch without pain in lateral hip Target Visit 15 PT Problem 4 PT Problem #4 Impaired Functional Mobility PT Goal 1 Goal / Goal Update * improve mobility skills: 2 minute walking test distance of 350' 07-22-24 progress goal met Target Visit 8 Progress Met PT Goal 2 Goal / Goal Update * pt perform bilateral UE lift of 20# box from waist/floor height, 3x with correct technique 07-22-24 progress goal not met continue towards goal Target Visit 15
--- NOTE | 2024-07-22 10:51 | PTOPPROG ---
Assessment and note entered by Celine Lawson, PT Assessment Status Progress ICD-10 Condition Codes (PT) Pain in low back M54.50 Onset 05-31-24 Subjective Information feel like my back is about the same; still having pain in my back- worried about what is causing it return to August 03; is still off work; PAIN: range in the past week 5-6/10; R and L low back; increase pain: up/moving around walking 10-15 minutes pain increases decrease pain: sit, relaxing, stretching a little taking naproxen & tylenol arthritis; is sleeping in recliner and bed; recliner is more comfortable, try to start out sleeping in the bed does not sleep well in general, up and problems falling back asleep; Assessment PT Clinical Summary Javed has received 7 PT sessions. Compared to the initial evaluation: pain rating from 2-8/10 to 5-6/10 over lumbar area, without radicular pain; self assessment with Oswestry rating from 54% to 30% limitation in activity level; increase flexibility of R and L hamstrings piriformis and hip flexion ROM- only pain in lateral R hip increase with R hip piriformis stretch; 2 minute walking test distance from 275' with pain 8/10 to 420' with pain 6/10 after walking; maximum box with with bilateral UE's from waist/floor height of 15#- reports struggle to lift it ; education for posture, body mechanics, HEP. The goals were partially met. Continue PT treatment. Plan of Care Interventions Electrical Stimulation,Hot Pack/Cold Pack,Manual Therapy,Mechanical Traction,Neuro Re-education, Patient/Caregiver Education,Therapeutic Activities ,Therapeutic Exercise,Ultrasound Other Interventions taping PT Services Indicated Yes Treatment Frequency and 2x/wk for 8 visits Duration These treatments will address the objective and functional deficits as defined above. The patient will be advanced safely and appropriately in order for the patient to progress towards his/her prior level of function. Additional exercises will be introduced and as well as a comprehensive home exercise program upon discharge, if needed, ?to ensure carryover of functional gains achieved in the clinic. This treatment plan has been reviewed and agreement upon by the patient.
--- NOTE | 2024-07-28 09:38 | PCPTNOTE ---
Pt called to cancel his appointment due to illness
--- NOTE | 2024-08-08 11:39 | PCPTNOTE ---
Pt called and canceled due to pain. Pt plans attending PT on . AKS
--- NOTE | 2024-08-11 10:55 | PCPTNOTE ---
Pt no call/no showed his appointment today
--- NOTE | 2024-08-15 09:17 | PCPTNOTE ---
Pt called and canceled appt today due to pain. I reached out to see how he was doing and MRI results. [place] [facility] [place] to see if he needs our services since 5 cx this month. AKS
--- NOTE | 2024-08-22 10:56 | PCPTNOTE ---
Patient was a No Show/No Call for today's Progress note.
== END 2024-09-26 23:59 | disposition home or self-care (01) ==
LOC: ANHPT 13:00
PROVIDERS: PCP Physician Assistant; Visit Provider Physician Assistant
DX: M54.50 Low back pain, unspecified (principal)
CPT/HCPCS: 97014; 97110; 97140; 97161; 97530; G0283